=== PATIENT | female | born 2000 | race Caucasian/White ===

== ENCOUNTER 2021-12-09 03:54 | Emergency (ER) | payer BC, OTHER, SELFPAY ==
[2021-12-09] MEDS ORDERED: Ibuprofen 200 MG TAB ONE (05:26)
== END 2021-12-09 05:30 | disposition home or self-care (01) ==
LOC: ERS 03:54
DX: S67.22XA Crushing injury of left hand, initial encounter (principal); S60.222A Contusion of left hand, initial encounter; W23.0XXA Caught, crushed, jammed, or pinched between moving objects, initial encounter